=== PATIENT | male | born 1990 | race Caucasian/White ===

== ENCOUNTER 2016-07-08 07:34 | Inpatient (IN) | payer BC, OTHER ==
[~2016-07-08] VITALS: Ht 180.3 cm; Wt 59.0 kg
[2016-07-08 15:53] VITALS: BP 131/84
[2016-07-08 16:00] VITALS: BP 130/89
--- NOTE | 2016-07-08 16:39 | NUR ---
ADMISSION: A 26 YO MALE ADMITTED FOR REPORTED HEROIN DEPENDENCE. HE STATES HE HAS BEEN USING 1 GRAM DAILY IV FOR 10 DAYS. HE USED ONCE ON June AFTER 16 MONTHS CLEAN AND OVERDOSED AND WAS REVIVED WITH NARCAN.THEN STARTED USING 10 DAYS AGO. LAST USE THIS AM 1 GRAM IV. HE DENIES ANY OTHER SUBSTANCES AND STATES IF HE COMES UP POSITIVE FOR ANY OTHER DRUGS IT IS BECAUSE THE HEROIN MAY BE CUT WITH OTHER SUBSTANCES. HE DENIES MEDICAL HISTORY OR MEDS AT HOME. HE DENIES SZ HISTORY. HE DENIES HAVING A PCP. HE PRESENTS WITH BLUNTED AFFECT AND SUBDUED MOOD. HE STATES HE STILL FEELS MILDLY INTOXICATED FROM USE THIS AM AND DENIES S/S OF W/D AT THIS TIME.COWS 1. HE STATES HE CANNOT STOP USING ON HIS OWN AND NEEDS HELP. HE REPORTS ALLERGY TO SULFA. HIS SKIN IS WARM AND DRY. NO EDEMA NOTED. TRACK CASIANO NOTED TO BILATERAL ARMS WITH NOW SWELLING NM REDNESS NOTED. LUNG SOUNDS CLEAR. ORIENTED PT TO STAFF AND UNIT. REASSURED PT THAT NURSING STAFF IS HERE 24/. UDS PROVIDED. WILL CONTINUE TO MONITOR AND PROVIDE SAFE AND SUPPORTIVE ENVIRONMENT.
[2016-07-08] MEDS ORDERED: MIRALAX 17 GM POWD.PACK PO PRN (16:45)
[2016-07-08] MEDS ORDERED: diphenhydrAMINE 50 MG CAPSULE PO PRN (16:45)
[2016-07-08] MEDS ORDERED: ONDANSETRON ODT 4 MG TAB.RAPDIS SL PRN (16:45)
[2016-07-08] MEDS ORDERED: ACETAMINOPHEN 325 MG TABLET PO PRN (16:45)
[2016-07-08] MEDS ORDERED: HYDROXYZINE PAMOATE 25 MG CAPSULE PO PRN (16:45)
[2016-07-08] MEDS ORDERED: DICYCLOMINE HCL 20 MG TABLET PO PRN (16:45)
[2016-07-08] MEDS ORDERED: BUPRENORPHINE HCL 2 MG TAB.SUBL SL PRN (16:45)
[2016-07-08] MEDS ORDERED: METHOCARBAMOL 750 MG TABLET PO PRN (16:45)
[2016-07-08] MEDS ORDERED: MAG HYDROX/AL HYDROX/SIMETH 30 ML LIQUID UDC PO PRN (16:45)
[2016-07-08] MEDS ORDERED: IBUPROFEN 400 MG TABLET PO PRN (16:45)
[2016-07-08] MEDS ORDERED: LOPERAMIDE HCL 2 MG CAPSULE PO PRN ×2 (16:45)
[2016-07-08] MEDS ORDERED: CLONIDINE HCL 0.1 MG TABLET PO PRN (16:45)
[2016-07-08] MEDS ORDERED: MAGNESIUM HYDROXIDE 30 ML LIQUID UDC PO PRN (16:45)
[2016-07-08 17:15] LABS: *AMPHETAMINE, URINE NEGATIVE (NEGATIVE); *BARBITURATE, URINE NEGATIVE (NEGATIVE); *CANNABINOID, URINE NEGATIVE (NEGATIVE); *COCCAINE, URINE NEGATIVE (NEGATIVE); *OPIATE, URINE POSITIVE (NEGATIVE); *PHENCYCLIDINE SCREEN,URINE NEGATIVE (NEGATIVE)
--- NOTE | 2016-07-08 18:53 | NUR ---
END OF SHIFT: PT ADMITTED THIS AFTERNOON. UDS PROVIDED AND RESULTED. PT IS STILL MILDLY INTOXICATED. ENCOURAGED INCREASED FLUID. PT STATES HE WOULD LIKE TO REST. CALL GUIDRY IN REACH. BED LOCKED AND IN LOWEST POSITION.
--- NOTE | 2016-07-08 19:30 | NUR ---
START OF SHIFT NOTE : A 26 YO MALE ADMITTED FOR REPORTED HEROIN DEPENDENCE. HE DENIES SZ HISTORY. COWS=1 at 16:00. HE STATES HE CANNOT STOP USING ON HIS OWN AND NEEDS HELP. HE REPORTS ALLERGY TO SULFA. HIS SKIN IS WARM AND DRY. NO EDEMA NOTED. TRACK CASIANO NOTED TO BILATERAL ARMS WITH NOW SWELLING DC REDNESS NOTED. LUNG SOUNDS CLEAR. ORIENTED PT TO STAFF AND UNIT. REASSURED PT THAT NURSING STAFF IS HERE / . Safety measures in place : bed on lowest position with side rails x2 up for safety, call light within reach. Will continue to monitor closely and offer help.
[2016-07-08 20:00] VITALS: BP 131/84
[2016-07-08] MEDS: GABAPENTIN 300 MG CAPSULE PO SCH (21:12)
[2016-07-08 23:57] LABS: BASOPHILS # (AUTO) 0.1 K/uL (0.0-0.2); BASOPHILS % (AUTO) 1.3 % (0.0-2.0); EOSINOPHILS # (AUTO) 0.4 K/uL (0.0-0.7); EOSINOPHILS % (AUTO) 5.8 % (0.0-7.0); HEMATOCRIT 41.9 % (40.0-50.0); HEMOGLOBIN 14.6 g/dL (14.0-18.0); LYMPHOCYTES # (AUTO) 1.3 K/uL (0.8-4.8); LYMPHOCYTES % (AUTO) 22.2 % (20.5-51.5); MEAN CORPUSCULAR HEMOGLOBIN 31.5 uug (27.0-31.0); MEAN CORPUSCULAR HGB CONC 35 g/dL (32.0-37.0); MEAN CORPUSCULAR VOLUME 90.6 fL (82.0-92.0); MONOCYTES # (AUTO) 0.7 K/uL (0.1-1.30); MONOCYTES % (AUTO) 12.2 % (0.0-11.0); NEUTROPHILS # (AUTO) 3.5 K/uL (1.8-8.9); NEUTROPHILS % (AUTO) 58.5 % (38.5-71.5); PLATELET COUNT (AUTO) 275 K/uL (150-450); RED BLOOD CELL COUNT(AUTO) 4.63 MIL/uL (4.70-6.10); RED CELL DISTRIBUTION WIDTH 11.7 % (11.5-14.5)
[2016-07-09] VITALS: BP 133/63
[2016-07-09 00:03] LABS: ALANINE AMINOTRANSFERASE 19 U/L (16-63); ALBUMIN 3.8 g/dL (3.4-5.0); ALKALINE PHOSPHATASE 49 U/L (50-136); ASPARTATE AMINOTRANSFERASE 18 U/L (15-37); BILIRUBIN,TOTAL 0.3 mg/dL (0.2-1.0); CALCIUM 8.5 mg/dL (8.5-10.1); CARBON DIOXIDE 31 mmol/L (21-32); CHLORIDE 103 mmol/L (98-107); CREATININE 0.8 mg/dL (0.6-1.3); GFR 117 mL/min (>60); GLUCOSE 104 mg/dL (74-106); POTASSIUM 3.8 mmol/L (3.5-5.1); SODIUM SERUM 141 mmol/L (136-145); UREA NITROGEN, BLOOD 10 mg/dL (7-18)
[2016-07-09 00:15] LABS: ETHANOL < 3 MG/DL (0-0)
[2016-07-09 00:41] LABS: HIV-1 p24 ANTIGEN NON REACTIVE (NONREACTIVE); HIV-1/2 ANTIBODY NON REACTIVE (NONREACTIVE)
--- NOTE | 2016-07-09 07:11 | NUR ---
END OF SHIFT NOTE : A 26 YO MALE ADMITTED FOR REPORTED HEROIN DEPENDENCE. HE DENIES SZ HISTORY. HE STATES HE CANNOT STOP USING ON HIS OWN AND NEEDS HELP. HE REPORTS ALLERGY TO SULFA. HIS SKIN IS WARM AND DRY. NO EDEMA NOTED. TRACK CASIANO NOTED TO BILATERAL ARMS WITH NOW SWELLING VA REDNESS NOTED. Pt remains compliant with the treatment plan. Pt denies nausea, vomiting and diarrhea. No PRNs were given during my shift. V/S remain WNL. RR=16, even and unlabored, lungs clear upon auscultation, abdomen soft and non- distended. Pt denies nausea, vomiting and diarrhea. LAST COWS= 1 at 0400 , INTAKE= 1276 ml, voided x 2, slept 7 hours. Safety measures in place : bed on lowest position with side rails x2 up for safety, call light within reach. Will continue to monitor closely and offer help.
[2016-07-09 08:08] VITALS: BP 117/70
--- NOTE | 2016-07-09 08:10 | NUR ---
START OF SHIFT: RECEIVED PT THIS AM IN BED AOX4 AFTER SLEEPING 7 HRS LAST NIGHT. NO PRNS GIVEN LAST NIGHT PER AU PAIR. PT PRESENTS WITH IRRITABLE MOOD AND CONGRUENT AFFECT. HE REPORTS CHILLS, SWEATS, BODY ACHES, NASAL STUFFINESS, AND RESTLESS LEGS. HE REFUSES AM SUBUTEX AND STATES " I WANT TO FEEL EVEN MORE SICK BEFORE I START THE SUBUTEX." EDUCATED PT THAT HE DOESN'T HAVE TO WAIT FOR INDUCTION DOSE. PT VERBALLY EXPRESSED UNDERSTANDING OF EDUCATION AND STATES HE WILL TAKE THE NEXT DOSE DUE. COWS 12. ENCOURAGED INCREASED FLUIDS TO ASSIST IN DETOX PROCESS. WILL CONTINUE TO MONITOR. WILL PROVIDE SAFE AND SUPPORTIVE ENVIRONMENT.
[2016-07-09] MEDS ORDERED: 4 DAY TAPER BUPRENORPHINE -SERENITY PROTOCOL SL PRN (09:00)
[2016-07-09] MEDS ORDERED: TUBERCULIN,PURIF.PROT.DERIV. 5 TU/0.1 ML TEST ID ONE (09:00)
[2016-07-09] MEDS: BUPRENORPHINE HCL 2 MG TAB.SUBL SL SCH ×3 (09:30→21:09)
[2016-07-09] MEDS: DOCUSATE SODIUM 250 MG CAPSULE PO SCH (09:56)
[2016-07-09] MEDS: GABAPENTIN 300 MG CAPSULE PO SCH ×3 (09:57→21:09)
[2016-07-09 12:00] VITALS: BP 103/63
[2016-07-09] MEDS ORDERED: BUPRENORPHINE HCL 2 MG TAB.SUBL SL ONE (13:00)
--- NOTE | 2016-07-09 13:17 | NUR ---
INDUCTION DOSE OF SUBUTEX 4 MG SL ADMINISTERED. COWS 15. PT REPORTS CHILLS,SWEATS. STOMACH CRAMPS,BODY ACHES RESTLESSNESS AND IRRITABILITY. WILL CONTINUE TO MONITOR.
--- NOTE | 2016-07-09 14:05 | NUR ---
PT STATES SUBUTEX WAS MILDLY EFFECTIVE IN REDUCING S/S OF W/D. WILL CONTINUE TO MONITOR.
[2016-07-09 16:00] VITALS: BP 122/64
--- NOTE | 2016-07-09 18:51 | NUR ---
END OF SHIFT PT CONTINUES ON 4 DAY SUBUTEX TAPER. PT REFUSED AM SUBUTEX AND STATED HE DOES NOT WANT IT UNTIL HE ABSOLUTELY NEEDS IT. ONE TIME DOSE ORDERED AT 1300 FOR INDUCTION PT STATES HE CANNOT WAIT UNTIL 1500. COWS WAS 15. HE REPORTED ANXIETY,CHILLS,SWEATS, RESTLESSNESS,RUNNY NOSE AND MUSCLE ACHES. SUBUTEX WAS EFFECTIVE AND COWS CAME DOWN TO 10. PT ISOLATED IN ROOM MOST OF SHIFT. VS REMAIN WNL. BED IN LOWEST POSITION AND CALL GUIDRY IN REACH. WILL REPORT TO SUPERINTENDENT TESTS.
[2016-07-09 20:00] VITALS: BP 125/72
--- NOTE | 2016-07-09 20:00 | NUR ---
Start of Shift Patient is a 26-year-old, male, admitted for Opiate dependence. The patient started using at age 19 and is currently using heroin 1g via IV injection on a daily basis. No history of seizures reported. No medical history per pt. Started on a 4-day Subutex Taper on 07/09/2016. No untoward symptoms noted at this time. . Pt is AAOx3, no SOB nor significant anxiety at this time. Pt is ambulatory with steady gait. No hallucinations, SI nor HI reported. Skin is intact. With medications for abscess. Fall, universal, seizure and safety prec in place. Call light within reach. Kept pt warm, dry and comfortable. Last COWS=7. Will continue to monitor.
[2016-07-10] VITALS: BP 121/70
[2016-07-10 04:00] VITALS: BP 112/68
--- NOTE | 2016-07-10 07:33 | NUR ---
End of Shift Patient is a 26-year-old, male, admitted for Opiate dependence. The patient started using at age 19 and is currently using heroin 1g via IV injection on a daily basis. No history of seizures reported. No medical history per pt. Started on a 4-day Subutex Taper on 07/09/2016. No untoward symptoms noted at this time. . Pt is AAOx3, no SOB nor significant anxiety at this time. Pt is ambulatory with steady gait. No hallucinations, SI nor HI reported. Skin is intact. With medications for abscess. Fall, universal, seizure and safety prec in place. Call light within reach. Kept pt warm, dry and comfortable. Last COWS=6, slept for 6 hours. Endorsed to AM shift nurse for continuity of care.
[2016-07-10 08:00] VITALS: BP 107/70
--- NOTE | 2016-07-10 08:05 | NUR ---
START OF SHIFT: RECEIVED PT SITTING UP IN BED A/O X 4. HE PRESENTS WITH FLAT AFFECT AND DEPRESSED MOOD. PT REPORTS DEPRESSION,IRRITABILITY,CHILLS,NIGHT SWEATS AND RESTLESS SLEEP LAST NIGHT. HE DENIES S/I AND H/I. COWS 6. HE CONTINUES ON SUBUTEX TAPER. ENCOURAGED PT TO VOICE HIS INABILITY TO SLEEP AT NIGHT TO NURSE SO HE CAN BE MEDICATED ACCORDINGLY. ENCOURAGE PT TO SHOWER THIS AM AND ATTEND GROUPS TO PROMOTE WELLNESS. ENCOURAGED INCREASED FLUIDS TO ASSIST IN FACILITATING DETOX PROCESS. WILL CONTINUE TO MONITOR AND PROVIDE SUPPORT.
[2016-07-10] MEDS: GABAPENTIN 300 MG CAPSULE PO SCH ×3 (08:28→20:50)
[2016-07-10] MEDS: DOCUSATE SODIUM 250 MG CAPSULE PO SCH (08:29)
[2016-07-10] MEDS ORDERED: BUPRENORPHINE HCL 2 MG TAB.SUBL SL SCH (09:00)
[2016-07-10 12:00] VITALS: BP 109/67
[2016-07-10] MEDS: BUPRENORPHINE HCL 2 MG TAB.SUBL SL SCH ×2 (15:24→20:51)
[2016-07-10 16:00] VITALS: BP 121/74
[2016-07-10] MEDS ORDERED: TRAZODONE 100 MG TABLET PO PRN (16:15)
--- NOTE | 2016-07-10 16:19 | NUR ---
PSYCH. ASSESSED PT. NEW ORDER FOR TRAZADONE FOR SLEEP.
--- NOTE | 2016-07-10 18:41 | NUR ---
END OF SHIFT: PT CONTINUES ON SUBUTEX TAPER.LAST COWWS 4. HE CONTINUES TO PRESENT WITH FLAT AFFECT AND DEPRESSED MOOD. HE DENIES S/I AND H/I. PSYCH MD ASSESSED PT AND ORDERED TRAZADONE FOR SLEEP. ENCOURAGED PT TO ATTEND GROUP AND EXPRESS FEELINGS. ENCOURAGED PT TO SHOWER THIS AM AND HE DID NOT SHOWER. PT IS ISOLATIVE WITH VERY LITTLE INTERACTION WITH PEERS. HE STAYED IN ROOM MOST OF SHIFT WATCHING TV. ENCOURAGED GROUP ATTENDANCE. WILL PASS SHIFT REPORT TO ONCOMING NURSE.
--- NOTE | 2016-07-10 19:45 | NUR ---
START OF SHIFT NOTE Received report from day shift nurse. Pt is 26 y o male, admitted on 07/08/16 for heroin (1 g IV daily for 10 days). Pt is on 4 day Subutex taper started 07/09/16. Pt in room, aaox4. Pt reports mild anxiety, educated on relaxation techniques (deep breathing). Pt reports chills, skin intact, warm, with minimal sweating noted. Pt denies pain/ body aches at this time. Lung sounds clear bilat, heart rate regular. Last BM today, pt denies n/v/d/ stomach cramps. Pt denies urinary difficulties. Pt full code, regular, diet, allergic to Sulfa. Pt on fall precautions. Side rails up x 2, call light within reach, bed locked in lowest position. Will continue with plan of care.
[2016-07-10 20:00] VITALS: BP 122/75
[2016-07-11] VITALS: BP 119/75
--- NOTE | 2016-07-11 04:00 | NUR ---
VS, COWS, CIWA Pt refused VS and COWS/ CIWA assessment, state he wants to sleep and not to be bothered. Pt asleep, RR even and unlabored at 17 breaths per minute. Side rails up x 2, call light within reach, bed locked in lowest position. Will continue To monitor Addendum: 07/11/16 at 0625 by VLADISLAV HERNANDEZ RN Amended: Links added.
[2016-07-11 04:06] LABS: HCV AB <0.1 s/co ratio (0.0-0.9); HEPATITIS B CORE AB, IgM Negative (Negative); HEPATITIS B SURFACE AG Negative (Negative)
--- NOTE | 2016-07-11 07:18 | NUR ---
END OF SHIFT NOTE Pt is 26 y o male, admitted on 07/08/16 for heroin (1 g IV daily for 10 days). Pt is on day 3 of 4 day Subutex taper started 07/09/16. Withdrawal s/s included mild anxiety, sweats, chills. Pt stated that taper medications help with withdrawal s/s management. No prns were given VSS. Last COWS 2 at 0000. Pt slept for 7 hrs; PO intake 1500 ml, urination x 2, BM x 1. Pt full code, regular, diet, allergic to Sulfa. Pt on fall precautions. Report endorsed to day shift nurse
--- NOTE | 2016-07-11 07:45 | NUR ---
START OF SHIFT Rcvd client in room, He is A/O x 4, He presents with anxious and depressed mood, flat affect, he reports chills, fatigue, he denies any N/V/D. Encouraged increased fluids as tolerated. Encouraged group therapy attendance. Per security shift manager nurse, client is a 26 year old male admitted to [facility] on 07/08/16 for withdrawal from Opiates. He is on a 4 day Subutex taper to manage s/s of w/d. Last COWS 2 @ 1999, he had an uneventful night, slept 7 hrs. He reports PMH opiois use disorder. Past Surgical history ACL knee repair at 16 yrs old. He denies any induced-seizure withdrawal. He is full code, regular diet, reports allergies to Sulfa. Client is on universal precautions. Side rails up x 2, call light within reach, bed locked in lowest positions. Will continue with plan of care.
[2016-07-11 08:50] VITALS: BP 108/64
[2016-07-11] MEDS: DOCUSATE SODIUM 250 MG CAPSULE PO SCH (09:27)
[2016-07-11] MEDS: BUPRENORPHINE HCL 2 MG TAB.SUBL SL SCH ×3 (09:27→20:36)
[2016-07-11] MEDS: GABAPENTIN 300 MG CAPSULE PO SCH ×3 (09:27→20:36)
--- NOTE | 2016-07-11 09:57 | NUR ---
REASSESSING TB TEST: ZERO INDURATION NOTED ON TO LEFT FOREARM.
[2016-07-11 12:00] VITALS: BP 111/75
[2016-07-11 16:00] VITALS: BP 111/61
--- NOTE | 2016-07-11 19:20 | NUR ---
END OF SHIFT Endorsed to incoming nurse, He is A/O x 4, adequate intake and output. he was not compliant with group therapy attendance. client is a 26 year old male admitted to [facility] on 07/08/16 for withdrawal from Opiates. He is on a 4 day Subutex taper to manage s/s of w/d. Last COWS 2 @ [id number]. he had an uneventful day. He reports PMH opiois use disorder. Past Surgical history ACL knee repair at 16 yrs old. He denies any induced-seizure withdrawal. He is full code, regular diet, reports allergies to Sulfa. Client is on universal precautions. Side rails up x 2, call light within reach, bed locked in lowest positions.
--- NOTE | 2016-07-11 19:21 | NUR ---
Start of shift note Received report from day shift nurse. Pt is a 26 yo male, A+Ox4, presenting to [facility] for Opiate dependence. Pt has Allergies to Sulfa, is Full Code status, and on Regular diet. Pt is on Fall precautions. Pt is on 4 day Subutex taper, tolerated well. No s/s of distress noted at this time. Respirations even and unlabored. Will continue to monitor.
[2016-07-11 20:58] VITALS: BP 119/67
--- NOTE | 2016-07-12 00:53 | NUR ---
V/S and COWS Refused V/S and COWS Refused. No s/s of distress noted at this time. Respirations even and unlabored. Will continue to monitor.
--- NOTE | 2016-07-12 04:35 | NUR ---
V/S and COWS Refused V/S and COWS Refused. No s/s of distress noted at this time. Respirations even and unlabored. Will continue to monitor.
--- NOTE | 2016-07-12 07:09 | NUR ---
End of shift note Pt is a 26 yo male, A+Ox4, presenting to [facility] for Opiate dependence. Pt has Allergies to Sulfa, is Full Code status, and on Regular diet. Pt is on Fall precautions. Pt is on 4 day Subutex taper, tolerated well. Pt slept for a total of 5 HRS. Last COWS: 3 @2000. No s/s of distress noted at this time. Respirations even and unlabored. Will endorse to day shift nurse.
--- NOTE | 2016-07-12 07:25 | NUR ---
Start of Shift Report from the night nurse: Pt is 26 y/o male here for Opiate dependence r/t Heroin 1g IV/d x 10 days; 4 day Subutex taper ordered. Pt is a full code, regular diet, allergic to sulfa, fall precautions ordered. HHx: No seizures, smoker, multiple relapses. V/S stable. Skin is intact. No new labs, recommendations or endorsements from the night nurse. Last COWS 3. Pt is in room asleep. Will cont. to monitor the pt.
[2016-07-12 08:00] VITALS: BP 121/70
[2016-07-12] MEDS ORDERED: BUPRENORPHINE HCL 2 MG TAB.SUBL SL SCH (09:00)
[2016-07-12] MEDS: DOCUSATE SODIUM 250 MG CAPSULE PO SCH (09:00)
[2016-07-12] MEDS: GABAPENTIN 300 MG CAPSULE PO SCH ×3 (09:01→22:00)
[2016-07-12] MEDS: DICYCLOMINE HCL 20 MG TABLET PO SCH ×3 (09:03→22:00)
--- NOTE | 2016-07-12 09:30 | NUR ---
Medication Non-Administration Pt is A&O 4, in bed resting & eating breakfast with slightly runny nose, V/S stable, COWS 1; pt refused Subutex 2mg SL scheduled at 0900H and states that he wants to get d/c'd tomorrow and is aware. Will cont. to monitor the pt.
[2016-07-12 12:00] VITALS: BP 112/75
[2016-07-12] MEDS ORDERED: DICY20TA28 PO (13:11)
[2016-07-12] MEDS ORDERED: HYDR-3895 PO (13:11)
[2016-07-12] MEDS ORDERED: Trazodone Hcl PO (13:11)
[2016-07-12] MEDS ORDERED: Gabapentin PO (13:11)
[2016-07-12 16:00] VITALS: BP 118/72
--- NOTE | 2016-07-12 19:25 | NUR ---
End of Shift Report to the night nurse: Pt is 26 y/o male here for Opiate dependence r/t Heroin 1g IV/d x 10 days; 4 day Subutex taper ordered. Pt is a full code, regular diet, allergic to sulfa, fall precautions ordered. HHx: No seizures, smoker, multiple relapses. V/S stable. Skin is intact. New Order for D/C tomorrow; endorsed to night nurse to obtain urine sample for UDS. Pt refused Subutex taper dose due at 0900am and no PRN medications given during my shift. No hallucinations, delusions or suicidal ideations. Pt partially attended the group therapy. Last COWS 2.
--- NOTE | 2016-07-12 19:26 | NUR ---
Start of shift note Received report from day shift nurse. Pt is a 26 yo male, A+Ox4, presenting to [facility] for Opiate dependence. Pt has Allergies to Sulfa, is Full Code status, and on Regular diet. Pt is on Fall precautions. Pt has completed 4 day Subutex taper, tolerated well, and is due for discharge tomorrow. No s/s of distress noted at this time. Respirations even and unlabored. Will continue to monitor.
[2016-07-12 20:22] VITALS: BP 131/84
[2016-07-12 23:56] LABS: *AMPHETAMINE, URINE NEGATIVE (NEGATIVE); *BARBITURATE, URINE NEGATIVE (NEGATIVE); *CANNABINOID, URINE NEGATIVE (NEGATIVE); *COCCAINE, URINE NEGATIVE (NEGATIVE); *OPIATE, URINE POSITIVE (NEGATIVE); *PHENCYCLIDINE SCREEN,URINE NEGATIVE (NEGATIVE)
[2016-07-13 00:29] VITALS: BP 122/73
[2016-07-13 04:43] VITALS: BP 126/74
--- NOTE | 2016-07-13 07:17 | NUR ---
End of shift note Pt is a 26 yo male, A+Ox4, presenting to [facility] for Opiate dependence. Pt has Allergies to Sulfa, is Full Code status, and on Regular diet. Pt is on Fall precautions. Pt has completed 4 day Subutex taper and is due for discharge today. Pt slept for a total of 4 HRS. Last COWS: 0 @0400. No s/s of distress noted at this time. Respirations even and unlabored. Will endorse to day shift nurse.
--- NOTE | 2016-07-13 07:30 | NUR ---
START OF SHIFT Rcvd client in room, He is A/O x 4, He presents with anxious and depressed mood, flat affect, he reports fatigue, he denies any N/V/D. Encouraged increased fluids as tolerated. He is schedule for discharge today to [facility]. Per contact lens blocker and cutter nurse, client is a 26 year old male admitted to [facility] on 07/08/16 for withdrawal from Opiates. He completed 4 day Subutex taper tolerated well. Last COWS 0 @ 1999, he had an uneventful night, slept 4 hrs. He reports PMH opiois use disorder. Past Surgical history ACL knee repair at 16 yrs old. He denies any induced-seizure withdrawal. He is full code, regular diet, reports allergies to Sulfa. Client is on universal precautions. Side rails up x 2, call light within reach, bed locked in lowest positions. Will continue with plan of care.
[2016-07-13 08:00] VITALS: BP 118/67
[2016-07-13] MEDS: DICYCLOMINE HCL 20 MG TABLET PO SCH (08:57)
[2016-07-13] MEDS: DOCUSATE SODIUM 250 MG CAPSULE PO SCH (08:57)
[2016-07-13] MEDS: GABAPENTIN 300 MG CAPSULE PO SCH (08:57)
--- NOTE | 2016-07-13 09:40 | NUR ---
DISCHARGE NOTE Client was admitted for opioid withdrawal. Last COWS-. Client denies any pain or discomfort. He denies any SI/HI ideation. Vital signs stable. Client states that he feels ready for discharge. Client prescription, discharge instructions and valuables secures in duffle bag and then given to [employer]AT BASKET MAKER HELPER MACHINE. All belongings returned to the pt. He verbalized his discharge instructions, ID band removed, client ambulated off of the unit. He left via [facility] to [facility] in stable condition.
[2016-07-18 23:21] LABS: *CODEINE Positive (.); *HYDROMORPHONE Positive (.); *OPIATES Positive ng/mL (Cutoff=300)
== END 2016-07-13 09:40 | disposition home or self-care (01) | DRG 895 ==
LOC: SRC 13:39
PROVIDERS: ADMIT Internal Medicine; ATTEND Internal Medicine
PROC: HZ2ZZZZ Detoxification Services for Substance Abuse Treatment (ICD-10-PCS; principal; 2016-07-08)
PROC: HZ31ZZZ Individual Counseling for Substance Abuse Treatment, Behavioral (ICD-10-PCS; 2016-07-11)
DX: F11.23 Opioid dependence with withdrawal (principal); F17.210 Nicotine dependence, cigarettes, uncomplicated; Z91.89 Other specified personal risk factors, not elsewhere classified; G47.00 Insomnia, unspecified; F41.9 Anxiety disorder, unspecified; F32.9 Major depressive disorder, single episode, unspecified
CPT/HCPCS: 36415; 80307; 80361; 83735; 84443; 85025; 86580; 86592; 86705; 86803; 87340; 87806; A4663; G6040-TC